=== PATIENT | female | born 1970 | race Two or more races ===

== ENCOUNTER 2019-10-22 21:49 | Emergency (ER) | payer MEDICAID ==
[~2019-10-22] VITALS: Ht 152.4 cm; Wt 102.1 kg
[2019-10-22 22:05] VITALS: BP 201/117
--- NOTE | 2019-10-22 22:05 | NUR ---
ED Nurse Note: Patient walked in from home d/t bilateral leg edema for 3 days, patient denies pain. Patient reported she takes blood pressure medication (refer to med recon). Patient aao x 4 and ambulatory with steady gait. Patient placed on monitor and changed into gown. No acute distress noted during assessment. ERMD at bedside for assessment.
--- NOTE | 2019-10-22 22:16 | Emergency Room Report ---
History of Present Illness General Chief Complaint: Edema Source: Patient Present Illness HPI Is a 48-year-old female with a history of hyperlipidemia, high blood pressure, and diabetes. She presents with chief complaint of lower extremity swelling. This been ongoing for last 3 days. She also has a 20 pound weight gain in the last month. Denies shortness of breath. No fever chills no chest pain. No nausea no vomiting. Nothing made it better. Nothing made it worse. She is also complaining of hoarseness to her voice. States she is compliant with her medication. Denies any drug use. Does smoke however. Allergies: Coded Allergies: No Known Allergies (Unverified , 10/22/19) Patient History Past Medical History: see triage record, old chart reviewed, DM, HTN Past Surgical History: other Pertinent Family History: none Social History: Denies: smoking Last Menstrual Period: n/a Now: No Immunizations: other Reviewed Nursing Documentation: PMH: Agreed; PSxH: Agreed Nursing Documentation-PMH Past Medical History: No History, Except For Hx Hypertension: Yes Hx Diabetes: Yes Review of Systems Eye: Denies: eye pain, blurred vision ENT: Denies: ear pain, nose congestion, throat swelling Respiratory: Denies: cough, shortness of breath Cardiovascular: Denies: chest pain, palpitations Gastrointestinal: Denies: abdominal pain, diarrhea, nausea, vomiting Musculoskeletal: Denies: back pain, joint pain Skin: Denies: rash Neurological: Denies: headache, numbness Endocrine: Denies: increased thirst, increased urine Hematologic/Lymphatic: Denies: easy bruising All Other Systems: negative except mentioned in HPI Physical Exam Vital Signs Date Time Temp Pulse Resp B/P (MAP) Pulse Ox O2 Delivery O2 Flow Rate FiO2 10/22/19 22:04 98.2 116 18 209/113 (145) 97 Room Air Vitals with tachycardia and high blood pressure Sp02 EP Interpretation: reviewed, normal General Appearance: well appearing, no apparent distress, alert, obese Head: normocephalic, atraumatic Eyes: bilateral eye PERRL, bilateral eye EOMI ENT: hearing grossly normal, normal pharynx Neck: full range of motion, supple, no meningismus Respiratory: chest non-tender, lungs clear, normal breath sounds Cardiovascular #1: regular rate, rhythm, no murmur Gastrointestinal: normal bowel sounds, non tender, no mass, no organomegaly, no bruit, non-distended Musculoskeletal: back normal, normal range of motion, gait/station normal, swelling - 1-2+ pitting edema Psychiatric: mood/affect normal Medical Decision Making Diagnostic Impression: Primary Impression: Hypertension Qualified Codes: I10 - Essential (primary) hypertension Additional Impressions: Peripheral edema Methamphetamine abuse UTI (urinary tract infection) Qualified Codes: N30.00 - Acute cystitis without hematuria ER Course Patient with peripheral edema and hypertension. No evidence of ACS, PE, dissection or CHF to name a few. She diuresed well. Blood pressure improved. Her blood pressure elevation may be also secondary to methamphetamine abuse. Also worsened because she gained 20 pounds in the last month. EKG Diagnostic Results Rate: tachycardiac Rhythm: NSR ST Segments: no acute changes Rhythm Strip Diag. Results EP Interpretation: yes Rate: 110 Rhythm: NSR, no PVC's, no ectopy Chest X-Ray Diagnostic Results Chest X-Ray Diagnostic Results : Chest X-Ray Ordered: Yes # of Views/Limited/Complete: 1 View Indication: Shortness of Breath EP Interpretation: Yes Interpretation: no consolidation, no effusion, no pneumothorax, no acute cardiopulmonary disease Impression: No acute disease Electronically Signed by: Sathish Haley MD Last Vital Signs Date Time Temp Pulse Resp B/P (MAP) Pulse Ox O2 Delivery O2 Flow Rate FiO2 10/22/19 22:04 98.2 116 18 209/113 (145) 97 Room Air Status: improved Disposition: HOME, SELF-CARE Condition: Stable Scripts Nitrofurantoin Monohyd/M-Cryst (Nitrofurantoin Long-Mcr 100 mg) 100 Mg Capsule 100 MG ORAL Q12H, #14 CAP Prov: Sathish Haley MD 10/22/19 Furosemide* (LASIX*) 20 Mg Tablet 20 MG ORAL DAILY, #7 TAB Prov: Sathish Haley MD 10/22/19 Metoprolol Succinate* (METOPROLOL SUCCINATE*) 50 Mg Tab.er.24h 50 MG ORAL DAILY, #90 TAB Prov: Sathish Haley MD 10/22/19 Patient Instructions: Peripheral Edema Additional Instructions: Stop your hydrochlorothiazide. This is medication #5 on your list. Increase your Metoprolol to 50 mg a day. This is #6 on your list. Stop using drugs. Follow-up with your doctor in 7 days for recheck. Return if symptoms worsen. Sathish Haley MD Oct 22, 2019 22:16
--- NOTE | 2019-10-22 22:35 | NUR ---
ED Nurse Note: Xray at bedside.
--- NOTE | 2019-10-22 22:37 | NUR ---
ED Nurse Note: Patient ambulating to restroom to provide urine sample in stable condition.
[2019-10-22 22:40] LABS: EOSINOPHILS % (AUTO) 1.6 % (0.0-3.0); HEMATOCRIT 39.2 % (37.0-47.0); HEMOGLOBIN 12.4 G/DL (12.0-16.0); LYMPHOCYTES % (AUTO) 24.5 % (20.0-45.0); MEAN CORPUSCULAR VOLUME 81 FL (80-99); MONOCYTES % (AUTO) 7.1 % (1.0-10.0); NEUTROPHILS % (AUTO) 65.9 % (45.0-75.0); PLATELET COUNT 285 K/UL (150-450); RED BLOOD COUNT 4.85 M/UL (4.20-5.40); RED CELL DISTRIBUTION WIDTH 15.6 % (11.6-14.8); WHITE BLOOD COUNT 11.1 K/UL (4.8-10.8)
--- NOTE | 2019-10-22 22:41 | NUR ---
ED Nurse Note: Patient ambulating back to bed and provided urine sample, patient placed back on monitor in stable condition and urine sample sent to lab.
[2019-10-22] MEDS ORDERED: METOPROLOL TART25 MG ORAL (22:42)
[2019-10-22] MEDS ORDERED: HYDROCHLOROTH12.5 MG ORAL (22:42)
[2019-10-22] MEDS ORDERED: LOSARTAN-HCTZ1 EAC2 ORAL (22:42)
[2019-10-22] MEDS ORDERED: GABAPENTIN300 MG ORAL (22:42)
[2019-10-22] MEDS ORDERED: METFORMIN HCL500 M1 ORAL (22:42)
[2019-10-22] MEDS ORDERED: SIMVASTATIN20 MG ORAL (22:42)
[2019-10-22 22:49] LABS: APPEARANCE,URINE CLEAR; BILIRUBIN, URINE NEGATIVE (NEGATIVE); COLOR,URINE PALE YELLOW; GLUCOSE, URINE (UA) NEGATIVE (NEGATIVE); KETONES,URINE NEGATIVE (NEGATIVE); LEUKOCYTE ESTERASE ,URINE 1+ (NEGATIVE); NITRITE,URINE NEGATIVE (NEGATIVE); PH,URINE 7 (4.5-8.0); PROTEIN,URINE NEGATIVE (NEGATIVE); UROBILINOGEN,URINE NORMAL MG/DL (0.0-1.0)
[2019-10-22 22:57] LABS: ANION GAP 10 mmol/L (5-15); BLOOD UREA NITROGEN 12 mg/dL (7-18); CALCIUM 9.1 MG/DL (8.5-10.1); CARBON DIOXIDE 28 MMOL/L (21-32); CHLORIDE 103 MMOL/L (98-107); CREATININE 0.9 MG/DL (0.55-1.30); POTASSIUM 3.9 MMOL/L (3.5-5.1); SODIUM 141 MMOL/L (136-145)
[2019-10-22 23:08] LABS: ALANINE AMINOTRANSFERASE 21 U/L (12-78); ALBUMIN 3.2 G/DL (3.4-5.0); ALBUMIN/GLOBULIN RATIO 0.8 (1.0-2.7); ALKALINE PHOSPHATASE 100 U/L (46-116); ASPARTATE AMINO TRANSFERASE 16 U/L (15-37); BILIRUBIN,TOTAL 0.2 MG/DL (0.2-1.0)
[2019-10-22] MEDS ORDERED: Metoprolol Tartrate 5mg/5ml Inj IVP ONE (23:30)
[2019-10-22] MEDS ORDERED: Atenolol 25mg tab ORAL ONE (23:45)
[2019-10-22] MEDS ORDERED: MACROBID100 MG ORAL (23:49)
[2019-10-22] MEDS ORDERED: FUROSEMIDE20 M1 ORAL (23:49)
[2019-10-22] MEDS ORDERED: METOPROLOL SUCC50 MG ORAL (23:49)
[2019-10-22 23:58] VITALS: BP 138/90
--- NOTE | 2019-10-22 23:58 | NUR ---
ER DISCHARGE NOTE: Patient is cleared to be discharged per ERMD, pt is aox4, on room air, with stable vital signs. pt was given dc and prescription instructions, pt was able to verbalize understanding, pt id band and iv site removed intact without complications. pt is able to ambulate with steady gait. pt took all belongings. pt stable upon discharge.
--- NOTE | 2019-10-23 10:12 | Diagnostic Imaging Report ---
Indication: Dyspnea Comparison: None A single view chest radiograph was obtained. Findings: Cardiomediastinal appearance is within normal limits for age. The lungs are clear. Pulmonary vascularity is appropriate. The diaphragmatic contour is smooth and costophrenic angles are sharp. No pleural effusions are identified. The bones are unremarkable. Impression: No acute findings
== END 2019-10-22 23:58 | disposition home or self-care (01) ==
LOC: EMR 22:19
DX: R60.0 Localized edema (principal); I10 Essential (primary) hypertension; F15.10 Other stimulant abuse, uncomplicated; N39.0 Urinary tract infection, site not specified; E11.9 Type 2 diabetes mellitus without complications; Z79.899 Other long term (current) drug therapy
CPT/HCPCS: 36415; 71045; 80053; 80307; 81003; 83880; 84484; 85025; 93005; 96374; 96375; G0480; J1940; Z7502; 99284